=== PATIENT | male | born 1975 | race African-American/Black ===

== ENCOUNTER 2023-06-28 21:41 | Emergency (ER) | payer SELFPAY ==
[2023-06-28 21:50] VITALS: BP 157/82; PULSE 78; RESP 16; TEMP 98.3; BMI 29.5
[2023-06-28] MEDS ORDERED: DOXYCYCLINE HYCLATE 100 MG CAPSULE PO ONE (23:18)
[2023-06-28] MEDS ORDERED: LIDOCAINE HCL 1%, 10 MG/ML (20ML VIAL) ONE (23:18)
[2023-06-28] MEDS: DOXYCYCLINE HYCLATE 100 MG CAPSULE PO ONE (23:24)
[2023-06-28 23:28] LABS: EPI CELLS 3 /uL (0-25.1); HYALINE CASTS 1 /uL (0-3.1); URINE APPEARANCE CLEAR; URINE BACTERIA 16 /uL (0-1359); URINE BILIRUBIN NEGATIVE (NEGATIVE); URINE COLOR YELLOW; URINE GLUCOSE (UA) NEGATIVE (NEGATIVE); URINE KETONE TRACE (NEGATIVE); URINE LEUK ESTERASE TRACE (NEGATIVE); URINE NITRITE NEGATIVE (NEGATIVE); URINE PROTEIN NEGATIVE (NEGATIVE); URINE RBC 37 /uL (0-23.9); URINE WBC 52 /uL (0-25.8)
== END 2023-06-28 23:31 | disposition home or self-care (01) ==
LOC: JERFT 21:41
DX: R36.9 Urethral discharge, unspecified (principal)
CPT/HCPCS: 36415; 81003; 87086; 87491; 87591; 99284-25